=== PATIENT | male | born 1965 | race Hispanic/Latino ===

== ENCOUNTER 2018-07-29 19:49 | Inpatient (IN) | payer SELFPAY ==
[2018-07-29] MEDS ORDERED: Nitroglycerin 100MG/250ML BOT 250 ML ONE (20:01)
[2018-07-29] MEDS ORDERED: Ondansetron PF 4 MG/2 ML Vial ONE ×2 (20:01→20:03)
[2018-07-29] MEDS ORDERED: Morphine 2 MG/ML SYRINGE ONE (20:02)
--- NOTE | 2018-07-29 20:15 | RAD ---
AP view chest. HISTORY: Chest pain. AP view chest demonstrates mild cardiomegaly. No evidence of effusions, pneumonia or pneumothorax seen. IMPRESSION: Cardiomegaly.
[2018-07-29] MEDS ORDERED: Midazolam HCl 2 mg/2 ml Vial ONE (20:20)
[2018-07-29] MEDS ORDERED: Fentanyl 100 MCG/2 ML VIAL ONE ×2 (20:20→21:18)
[2018-07-29 20:22] LABS: #Eosinphils 0.1 thou/uL (0.0-0.7); #Lymphocytes 3.1 thou/uL (1.20-3.40); #Monocytes 0.9 thou/uL (0.11-0.59); %Basophils 0.3 % (0.0-1.0); %Eosinophils 1.1 % (0.0-10.0); %Lymphocytes 34.3 % (21.0-51.0); %Monocytes 9.6 % (0.0-10.0); %Neutrophils 54.7 % (42.0-75.0); Hemoglobin 13.9 g/dL (14.0-18.0); Mean Corpuscular HGB CONC 32.8 g/dL (32.0-36.0); Mean Corpuscular Volume 88.5 fL (78.0-98.0); Mean Platelet Volume 8.4 fL (7.4-10.4); Platelet Count 232 thou/uL (130-400); RBC Distribution Width 12.4 % (11.5-14.5); White Blood Cell (WBC) Count 9.2 thou/uL (4.8-10.8)
[2018-07-29 20:29] LABS: PTT 28.7 SEC (22.9-36.1); Prothrombin Time 13.6 SEC (12.0-14.7)
[2018-07-29 20:38] LABS: Calcium 8.9 mg/dL (7.8-10.44); Chloride 108 mmol/L (98-107); Potassium 3.4 mmol/L (3.5-5.1); Sodium 139 mmol/L (136-145)
[2018-07-29] MEDS ORDERED: Heparin 10,000 UNITS/1 ML VIAL ONE ×2 (20:44→20:48)
[2018-07-29 20:48] LABS: ALT (SGPT) 14 U/L (8-55); AST (SGOT) 13 U/L (5-34); Albumin 3.9 g/dL (3.5-5.0); Alkaline Phosphatase 103 U/L (40-150); Anion Gap 13 mmol/L (10-20); BUN (Urea Nitrogen) 13 mg/dL (8.4-25.7); Bilirubin, Total 0.4 mg/dL (0.2-1.2); CK (CPK) 81 U/L (30-200); Calc. Creatinine Clearance 0 mL/min (70-130); Carbon Dioxide 21 mmol/L (22-29); Estimated GFR-MDRD Greater than 90; Globulin 2.5 g/dL (2.4-3.5); Glucose 126 mg/dL (70-105); Protein, Total 6.5 g/dL (6.0-8.3)
[2018-07-29] MEDS ORDERED: Aggrastat 12.5 MG/250 ML 250 ML ONE (22:08)
[2018-07-29] MEDS ORDERED: cloNIDine 0.1 MG TAB PO PRN (22:17)
[2018-07-29] MEDS ORDERED: Acetaminophen/Codeine 30-300mg Tablet PO PRN (22:17)
[2018-07-29] MEDS ORDERED: Milk Of Magnesia 30 ML UDCUP PO PRN (22:17)
[2018-07-29] MEDS ORDERED: traMADol HCl 50 MG TAB PO PRN (22:17)
[2018-07-29] MEDS ORDERED: Aggrastat 12.5 MG/250 ML 250 ML IVPB SCH (22:30)
[2018-07-29] MEDS ORDERED: Sodium Chloride 0.9% 1,000 ML IV SCH (22:30)
[2018-07-29 22:41] LABS: #Lymphocytes 0.5 thou/uL (1.20-3.40); #Monocytes 0.4 thou/uL (0.11-0.59); #Neutrophils 12.3 thou/uL (1.40-6.50); %Basophils 0.1 % (0.0-1.0); %Eosinophils 0.2 % (0.0-10.0); %Lymphocytes 3.7 % (21.0-51.0); %Monocytes 3.3 % (0.0-10.0); %Neutrophils 92.8 % (42.0-75.0); Hemoglobin 13.1 g/dL (14.0-18.0); Mean Corpuscular HGB CONC 33.4 g/dL (32.0-36.0); Mean Corpuscular Hemoglobin 29.5 pg (27.0-31.0); Mean Corpuscular Volume 88.4 fL (78.0-98.0); Mean Platelet Volume 8.2 fL (7.4-10.4); Platelet Count 204 thou/uL (130-400); RBC Distribution Width 12.2 % (11.5-14.5); Red Blood Cell (RBC) Count 4.43 mill/uL (4.70-6.10); White Blood Cell (WBC) Count 13.3 thou/uL (4.8-10.8)
[2018-07-29 23:12] LABS: Troponin I 8.012 ng/mL (< 0.028)
--- NOTE | 2018-07-30 04:32 | HP ---
REASON FOR ADMISSION: Intractable chest pain, acute myocardial infarction. HISTORY OF PRESENT ILLNESS: Mr. Bain states he had chest pain earlier today around 2 o'clock in the afternoon, but did not really tell me what it was initially, but eventually the pain worsened and he came to the emergency room. He was brought here by ambulance. EKG revealed left ventricular hypertrophy with repolarization changes versus myocardial infarction, but he continued to have severe chest pain. The patient really could not describe very well what the pain was like. He speaks Welsh only, but he only kept saying that it was a severe pain in the middle of his chest going across his chest. In view of the continued pain and EKG findings, he was brought to the laborer brush clearing. PAST MEDICAL HISTORY: Negative for any cardiac operations or procedures. No known medical operations. No known medical problems, but I do not believe he has been seeing physician anytime recently. SOCIAL HISTORY: Smoking history, unknown. The patient was really unable to give much history since he had severe pain. MEDICATIONS: None. ALLERGIES: NONE KNOWN. REVIEW OF SYSTEMS: Really would not give review of systems other than saying his chest pain is intense. PHYSICAL EXAMINATION: GENERAL: This is an ill-appearing middle-aged man with severe chest pain. VITAL SIGNS: Blood pressure 140/70, pulse 70. HEENT: Eyes, sclerae nonicteric. Mouth, mucous membranes are moist. NECK: Supple. No lymphadenopathy. LUNGS: Clear. No wheezing, rales, or rhonchi. CARDIAC: Normal S1, normal S2. No murmur, rub, or gallop. ABDOMEN: Soft and nontender. EXTREMITIES: No clubbing, no cyanosis. There is no edema. SKIN: Warm and dry. PSYCHIATRIC: Severe chest pain. IMAGING: EKG sinus rhythm, probable left ventricular hypertrophy with repolarization changes with the computer reading and that is unreasonable, but in view of the continued chest pain, it was thought that this could represent an acute myocardial infarction. ASSESSMENT: 1. Chest pain, intense. 2. Borderline EKG changes. 3. The patient was taken to the catheterization lab, where he was found to have a completely occluded proximal LAD which was successfully stented with diffuse atherosclerosis. PLAN: 1. Aspirin. 2. He will receive statins. 3. SUJIT inhibitors and beta-blockers. 4. Lipid-lowering therapy. The patient will be admitted to the cardiac care unit after the procedure. Job ID: [id number]
[2018-07-30 06:42] LABS: #Monocytes 0.6 thou/uL (0.11-0.59); #Neutrophils 7.5 thou/uL (1.40-6.50); %Basophils 0.1 % (0.0-1.0); %Eosinophils 0.2 % (0.0-10.0); %Lymphocytes 10.5 % (21.0-51.0); %Neutrophils 82.2 % (42.0-75.0); Hemoglobin 12.9 g/dL (14.0-18.0); Mean Corpuscular HGB CONC 33.5 g/dL (32.0-36.0); Mean Corpuscular Hemoglobin 29.7 pg (27.0-31.0); Mean Corpuscular Volume 88.8 fL (78.0-98.0); Mean Platelet Volume 8.7 fL (7.4-10.4); Platelet Count 193 thou/uL (130-400); RBC Distribution Width 12.3 % (11.5-14.5); Red Blood Cell (RBC) Count 4.34 mill/uL (4.70-6.10); White Blood Cell (WBC) Count 9.1 thou/uL (4.8-10.8)
[2018-07-30 06:53] LABS: ALT (SGPT) 26 U/L (8-55); AST (SGOT) 139 U/L (5-34); Albumin 3.7 g/dL (3.5-5.0); Alkaline Phosphatase 88 U/L (40-150); Anion Gap 12 mmol/L (10-20); BUN (Urea Nitrogen) 8 mg/dL (8.4-25.7); Bilirubin, Total 0.6 mg/dL (0.2-1.2); Calc. Creatinine Clearance 104 mL/min (70-130); Calcium 8.8 mg/dL (7.8-10.44); Carbon Dioxide 21 mmol/L (22-29); Chloride 109 mmol/L (98-107); Estimated GFR-MDRD Greater than 90; Globulin 2.4 g/dL (2.4-3.5); Glucose 104 mg/dL (70-105); Potassium 3.5 mmol/L (3.5-5.1); Protein, Total 6.1 g/dL (6.0-8.3); Sodium 138 mmol/L (136-145)
[2018-07-30 07:18] LABS: Troponin I 48.342 ng/mL (< 0.028)
[2018-07-30] MEDS ORDERED: Acetaminophen 650 MG/20.3 ML UDCUP PO PRN (08:18)
[2018-07-30 08:50] LABS: Cardiac Risk 2.8 (Less than 4.5)
[2018-07-30] MEDS ORDERED: Potassium Chloride 20 MEQ TAB PO SCH ×2 (09:00→09:45)
[2018-07-30] MEDS: Carvedilol 3.125 MG TAB PO SCH ×2 (09:16→18:22)
[2018-07-30] MEDS: Lisinopril 2.5 MG TAB PO SCH (09:17)
[2018-07-30] MEDS: Aspirin Chewable 81 MG TAB PO SCH (09:17)
--- NOTE | 2018-07-30 09:28 | PRG ---
DATE OF SERVICE: 07/30/2018 SUBJECTIVE: Mr. Odell Mcbride feels well today. No chest pain or pressure. No nausea, vomiting. OBJECTIVE: VITAL SIGNS: Blood pressure 114/76, pulse 66 and regular. LUNGS: Clear. CARDIAC: Normal S1, normal S2. ABDOMEN: Soft, nontender. EXTREMITIES: There is no edema. : His right groin looks fine. LABORATORY DATA: The patient's peak troponin was 48.3. Potassium is 3.5. ASSESSMENT: 1. Status post an anterior myocardial infarction with occlusion of the proximal left anterior descending. 2. Mild hypokalemia. 3. Diffuse atherosclerosis in the left anterior descending. PLAN: 1. Aspirin. 2. Brilinta. 3. Lisinopril. 4. Coreg. 5. Potassium. 6. Statins. 7. Try to find out what the plan is once he is discharged from the hospital. It is essential that the patient take aspirin and antiplatelet medicine at the time of discharge to reduce risk of stent thrombosis. Before he goes home, I will transition him to Brilinta, as if he is released home, there maybe a significant risk he can't afford the Brilinta and would not take it. We will get Vending Route Servicer involved prior to discharge. Job ID: [id number] [facility]Nick
[2018-07-30] MEDS ORDERED: Multivitamins, Adult 10 ML, Folic Acid 1 MG, Thiamine HCl 100 MG in Dextrose 5 %-0.45 %... IV SCH (09:45)
[2018-07-30] MEDS ORDERED: Diazepam 5 MG TAB PO PRN (09:48)
[2018-07-30] MEDS: TICAGRELOR 90 MG TABLET PO SCH ×2 (09:55→20:43)
[2018-07-30] MEDS ORDERED: Diazepam 5 MG TAB PO SCH (10:00)
[2018-07-30] MEDS ORDERED: Thiamine HCl 200 MG/2 ML VIAL IM SCH (10:00)
--- NOTE | 2018-07-30 10:21 | CON ---
DATE OF CONSULTATION: 07/30/2018 SERVICE: Pulmonary Medicine. REASON FOR CONSULT: ICU patient. HISTORY OF PRESENT ILLNESS: The patient is a 53-year-old male with past medical history significant for essentially nothing, who presents to the hospital with acute onset of chest discomfort. It started at 2 o'clock in the afternoon. He was brought to the emergency department by ambulance. EKG was consistent with an ST-elevation UT. He was emergently brought to the lab technician. An obstructed LAD was identified. Two stents were deployed, and his chest pain went away. He denies any current nausea, vomiting, fevers, chills, cough, or sputum production. Nobody has been sick around him recently. PAST MEDICAL HISTORY: None. PAST SURGICAL HISTORY: None. SOCIAL HISTORY: It is positive for history of cocaine abuse and alcohol abuse. He denies any significant tobacco use. He has no exposure to chemicals, dust, or asbestos. FAMILY HISTORY: Noncontributory. ALLERGIES: NO KNOWN DRUG ALLERGIES. MEDICATIONS: List of his inpatient medications was reviewed. I have added thiamine and folate to the patient's medication list. REVIEW OF SYSTEMS: General; head, ears, eyes, nose, and throat; cardiovascular; respiratory; GI; ; musculoskeletal; neurologic; and skin are negative except as mentioned in the HPI. PHYSICAL EXAMINATION: VITAL SIGNS: Afebrile, pulse 68, blood pressure 117/73, respirations 13, and saturation 100% on room air. GENERAL: The patient is awake and alert, in no apparent distress. LUNGS: He has excellent air entry without any prolonged expiratory phase, wheezing, crackles, or rhonchi. HEART: Normal rate, regular. ABDOMEN: Soft, nontender, and nondistended. Bowel sounds are positive. MUSCULOSKELETAL: No cyanosis or clubbing. No pitting in bilateral lower extremities. NEUROLOGIC: Grossly nonfocal. LABORATORY DATA: WBC 9.1, hemoglobin 12.9, and platelets 193,000. INR 1.0. ACT 160. Basic metabolic profile is essentially unremarkable except for potassium of 3.5. Liver function studies are unremarkable. Troponin up-trended all the way to 48 following catheterization. Liver function studies are unremarkable. Total cholesterol level is minimally elevated. IMAGING DATA: Chest x-ray demonstrates no acute cardiopulmonary abnormality. ASSESSMENT: 1. Acute ST-elevation myocardial infarction, status post percutaneous coronary intervention to the left anterior descending. 2. Polysubstance drug abuse including history of cocaine use and recent alcohol abuse. DISCUSSION AND PLAN: We will put him on ASC scale, and give him some thiamine and folate. I will replace his potassium. I will add a magnesium on tomorrow morning's laboratories. At this point, he remains stable for transition out of the ICU to the telemetry unit. When he arrives on the floor, he will have no further requirements for inpatient Pulmonary/Critical Care opinion, and I will sign off. Please call with additional questions or concerns through time. 70 minutes have been devoted to this patient in various activities. I personally reviewed all imaging studies and laboratory data noted within this document. For fifty percent of this time, I was interacting with the patient at the bedside or coordinating care with the care team. For the remainder of the time I was immediately available to the patient in the hospital unit. Job ID: [id number] MTDD
[2018-07-30 10:23] LABS: #Lymphocytes 1.2 thou/uL (1.20-3.40); #Monocytes 0.6 thou/uL (0.11-0.59); #Neutrophils 6.1 thou/uL (1.40-6.50); %Basophils 0.3 % (0.0-1.0); %Eosinophils 0.4 % (0.0-10.0); %Neutrophils 76.4 % (42.0-75.0); Hemoglobin 12.9 g/dL (14.0-18.0); Mean Corpuscular HGB CONC 33.2 g/dL (32.0-36.0); Mean Corpuscular Hemoglobin 29.5 pg (27.0-31.0); Mean Corpuscular Volume 88.9 fL (78.0-98.0); Mean Platelet Volume 8.4 fL (7.4-10.4); Platelet Count 187 thou/uL (130-400); RBC Distribution Width 12.5 % (11.5-14.5); Red Blood Cell (RBC) Count 4.37 mill/uL (4.70-6.10)
[2018-07-30] MEDS: Atorvastatin Calcium 40 MG TAB PO SCH (20:43)
[2018-07-31] MEDS ORDERED: Diazepam 5 MG TAB PO PRN (04:00)
[2018-07-31 05:42] LABS: Anion Gap 9 mmol/L (10-20); BUN (Urea Nitrogen) 10 mg/dL (8.4-25.7); Calc. Creatinine Clearance 116 mL/min (70-130); Calcium 8.9 mg/dL (7.8-10.44); Carbon Dioxide 25 mmol/L (22-29); Chloride 107 mmol/L (98-107); Estimated GFR-MDRD Greater than 90; Glucose 86 mg/dL (70-105); Magnesium 2.2 mg/dL (1.6-2.6); Potassium 3.7 mmol/L (3.5-5.1); Sodium 137 mmol/L (136-145)
[2018-07-31] MEDS: Lisinopril 2.5 MG TAB PO SCH (08:40)
[2018-07-31] MEDS: Folic Acid 1 MG TAB PO SCH (08:41)
[2018-07-31] MEDS: Multivitamin W/ Minerals 1 TAB PO SCH (08:41)
[2018-07-31] MEDS: Carvedilol 3.125 MG TAB PO SCH ×2 (08:41→18:15)
[2018-07-31] MEDS: Aspirin Chewable 81 MG TAB PO SCH (08:41)
[2018-07-31] MEDS: TICAGRELOR 90 MG TABLET PO SCH ×2 (08:41→21:32)
[2018-07-31] MEDS: Magnesium Oxide 400 MG TAB PO SCH (08:41)
[2018-07-31] MEDS: Thiamine 100 MG TAB PO SCH (08:41)
[2018-07-31] MEDS ORDERED: Thiamine 100 MG TAB PO SCH (09:00)
[2018-07-31] MEDS ORDERED: Folic Acid 1 MG TAB PO SCH (09:00)
[2018-07-31] MEDS: Atorvastatin Calcium 40 MG TAB PO SCH (21:32)
[2018-08-01 07:25] VITALS: BP 128/72; TEMP 98.2
[2018-08-01] MEDS: TICAGRELOR 90 MG TABLET PO SCH (08:34)
[2018-08-01] MEDS: Thiamine 100 MG TAB PO SCH (08:35)
[2018-08-01] MEDS: Folic Acid 1 MG TAB PO SCH (08:35)
[2018-08-01] MEDS: Lisinopril 2.5 MG TAB PO SCH (08:35)
[2018-08-01] MEDS: Magnesium Oxide 400 MG TAB PO SCH (08:35)
[2018-08-01] MEDS: Aspirin Chewable 81 MG TAB PO SCH (08:35)
[2018-08-01] MEDS: Multivitamin W/ Minerals 1 TAB PO SCH (08:35)
[2018-08-01] MEDS: Carvedilol 3.125 MG TAB PO SCH (08:35)
[2018-08-01] MEDS ORDERED: Clopidogrel Bisulfate 300 MG TAB PO SCH (09:00)
--- NOTE | 2018-08-01 11:03 | DIS ---
DATE OF ADMISSION: 07/29/2018 DATE OF DISCHARGE: 08/01/2018 FINAL DIAGNOSES: 1. Status post anterior myocardial infarction. 2. Hypercholesterolemia. MEDICATIONS AT TIME OF DISCHARGE: 1. Aspirin 81 mg a day. 2. Atorvastatin 40 mg a day. 3. Carvedilol 3.125 mg twice a day. 4. Clopidogrel 75 mg a day. 5. Lisinopril 2.5 mg a day. DISPOSITION: The patient will be discharged back to the senior living. HISTORY OF PRESENT ILLNESS: Mr. Gm Mcbride is a pleasant gentleman, who came with having severe intractable chest pain, brought by ambulance to the emergency room. The patient's EKG did not show a definite myocardial infarction. The EKG pattern was really more consistent with left ventricular hypertrophy with repolarization changes. However, the patient's pain was continued and severe and we took him to the catheterization lab. There was found that he had a proximal occlusion of the LAD with no obstructive disease in the circumflex and a 50% plaque in the right coronary artery. Ejection fraction surprisingly was maintained at 55%. He had small diffusely diseased LAD. He was treated initially with a 2.25 x 24 mm stent, but the flow was slow and there did appear to be a more distal lesion that could be an affecting runoff. Therefore, he was given Aggrastat and another stent was placed overlapping with the more proximal stent. The two stents were placed for 2.25 x 24 and a 2.25 x 12. The stent was then postdilated with a 2.5 mm x 15 mm balloon, the high-pressure all up the last couple of millimeters of stent distally. The patient's pain resolved and he felt much better. PERTINENT LABORATORY DATA: Hemoglobin 12.9. Peak troponin was 48.3. The LDL cholesterol the following morning was 72, creatinine 0.68, potassium was 3.7. DISCHARGE INSTRUCTIONS: The patient was initially given Brilinta, but at this point, it is unclear when he will be released from senior living. I am very concerned that if we give him a prescription for Brilinta, he will not be able to fill it due to the cost. Therefore, we changed him to Plavix, which is a much less expensive medicine. I think if we send him home on Brilinta, there is a very high probability that he will not be able to afford it and will only take aspirin without any dual anti-platelet drugs, therefore he will get clopidogrel 300 mg this morning and 75 mg a day. He also received Brilinta this morning. Long-term prognosis guarded. The patient does not speak any Maori. I stressed the importance to him of taking the medicines as prescribed. We will also have someone who is more fluent in [place]ian. I also emphasized this to him. Job ID: [id number] MTDD
--- NOTE | 2018-08-01 16:46 | EKG ---
Test Reason : POST-CATH Blood Pressure : / mmHG Vent. Rate : 074 BPM Atrial Rate : 074 BPM P-R Int : 184 ms QRS Dur : 098 ms QT Int : 414 ms P-R-T Axes : 069 039 006 degrees QTc Int : 459 ms Normal sinus rhythm Septal infarct , age undetermined Abnormal ECG Confirmed by DR. Zack OLSON ([id number]) on 08/01/2018 4:46:06 PM Referred By: WESLEY Confirmed By:DR. Zack OLSON
[2018-08-02] MEDS ORDERED: Clopidogrel Bisulfate 75 MG TAB PO SCH (09:00)
== END 2018-08-01 10:16 | DRG 247 ==
LOC: ERS 19:49 → CCU 22:23 → EEVIPCON 22:23 → 2NO 07-30 10:32
PROVIDERS: ADMIT Internal Medicine Cardiovascular Disease; ATTEND Internal Medicine Cardiovascular Disease
PROC: 027035Z Dilation of Coronary Artery, One Artery with Two Drug-eluting Intraluminal Devices, Percutaneous Approach (ICD-10-PCS; principal; 2018-07-29)
PROC: 4A023N7 Measurement of Cardiac Sampling and Pressure, Left Heart, Percutaneous Approach (ICD-10-PCS; 2018-07-29)
PROC: B2151ZZ Fluoroscopy of Left Heart using Low Osmolar Contrast (ICD-10-PCS; 2018-07-29)
PROC: B2101ZZ Fluoroscopy of Single Coronary Artery using Low Osmolar Contrast (ICD-10-PCS; 2018-07-29)
DX: I21.09 ST elevation (STEMI) myocardial infarction involving other coronary artery of anterior wall (principal); F14.10 Cocaine abuse, uncomplicated; E78.00 Pure hypercholesterolemia, unspecified; E87.6 Hypokalemia
CPT/HCPCS: 36415; 71045; 76942; 80048; 80053; 80061; 82550; 83735; 84484; 85025; 85347; 85610; 85730; 92928; 92977; 93005; 93010; 93458; 93798; 96374; 96375; 99152; 99153; C1725; C1769; C1874; C1887; C9600; J1644; J2250; J2270; J2405; J3010; J3246; J3411; J3475; J3490; J7042